=== PATIENT | female | born 1995 | race Caucasian/White ===

== ENCOUNTER 2017-01-07 18:05 | Emergency (ER) | payer OTHER ==
[2017-01-07 18:12] VITALS: BP 136/82
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
== END 2017-01-07 21:24 | disposition home or self-care (01) ==
LOC: ED 18:05
DX: S06.0X9A Concussion with loss of consciousness of unspecified duration, initial encounter (principal); S00.03XA Contusion of scalp, initial encounter; J32.3 Chronic sphenoidal sinusitis; W22.8XXA Striking against or struck by other objects, initial encounter; Y93.89 Activity, other specified; Y92.89 Other specified places as the place of occurrence of the external cause; R51 Headache
CPT/HCPCS: 70450; 99281